=== PATIENT | male | born 1965 | race Caucasian/White ===

== ENCOUNTER 2017-06-12 13:14 | Emergency (ER) | payer BC, MEDICARE, OTHER ==
[~2017-06-12] VITALS: Ht 185.4 cm; Wt 126.2 kg
[2017-06-12] MEDS ORDERED: rabies vaccine (PCEC)/PF 2.5 unit kit IMVAC ONE (15:30)
[2017-06-12] MEDS ORDERED: bacitracin 15gm ointment TP ONE (15:45)
[2017-06-12] MEDS ORDERED: AMOX-422 PO (15:53)
[2017-06-12 16:10] VITALS: BP 141/90
== END 2017-06-12 16:17 | disposition home or self-care (01) ==
LOC: ER 13:14
DX: S81.051A Open bite, right knee, initial encounter (principal); Z85.818 Personal history of malignant neoplasm of other sites of lip, oral cavity, and pharynx; Z79.899 Other long term (current) drug therapy; W54.0XXA Bitten by dog, initial encounter; Y93.89 Activity, other specified; Y92.89 Other specified places as the place of occurrence of the external cause; Y99.8 Other external cause status
CPT/HCPCS: 90471; 90675; 99283; A6449

== ENCOUNTER 2017-06-15 16:38 | Emergency (ER) | payer BC ==
[~2017-06-15] VITALS: Ht 185.4 cm; Wt 122.7 kg
[~2017-06-15 16:38] MED LIST: AMOX-422 PO
[2017-06-15 16:47] VITALS: BP 124/82
[2017-06-15] MEDS ORDERED: rabies vaccine (PCEC)/PF 2.5 unit kit IMVAC ONE (17:00)
== END 2017-06-15 17:35 | disposition home or self-care (01) ==
LOC: ER 16:38
DX: Z23 Encounter for immunization (principal); Z98.890 Other specified postprocedural states
CPT/HCPCS: 90471; 90675; 99283

== ENCOUNTER 2017-06-19 07:50 | Emergency (ER) | payer BC ==
[~2017-06-19] VITALS: Ht 185.4 cm; Wt 126.1 kg
[2017-06-19] MEDS ORDERED: rabies vaccine (PCEC)/PF 2.5 unit kit IMVAC ONE (08:00)
[2017-06-19] MEDS ORDERED: BACDS PO (08:02)
[2017-06-19] MEDS ORDERED: CEPH500C5 PO (08:02)
[2017-06-19 08:28] VITALS: BP 128/84
== END 2017-06-19 08:28 | disposition home or self-care (01) ==
LOC: ER 07:50
DX: Z23 Encounter for immunization (principal); Z85.9 Personal history of malignant neoplasm, unspecified; Z79.899 Other long term (current) drug therapy
CPT/HCPCS: 90471; 90675; 99283

== ENCOUNTER 2017-06-26 08:19 | Emergency (ER) | payer BC ==
[~2017-06-26] VITALS: Ht 185.4 cm; Wt 123.0 kg
[~2017-06-26 08:19] MED LIST changes: -AMOX-422 PO; +BACDS PO; +CEPH500C5 PO
[2017-06-26 08:28] VITALS: BP 117/60
[2017-06-26] MEDS ORDERED: rabies vaccine (PCEC)/PF 2.5 unit kit IMVAC ONE (08:35)
== END 2017-06-26 09:36 | disposition home or self-care (01) ==
LOC: ER 08:19
DX: Z23 Encounter for immunization (principal); Z21 Asymptomatic human immunodeficiency virus [HIV] infection status
CPT/HCPCS: 90471; 90675; 99284